=== PATIENT | male | born 1940 | race Caucasian/White ===

== ENCOUNTER → 2017-01-21 | Outpatient (CLI) | payer MEDICARE, BC ==
--- NOTE | 2017-01-21 10:01 | RADRPT ---
PROCEDURE: Left knee x-ray CLINICAL INDICATION: Pain TECHNIQUE: AP, lateral, sunrise and oblique views of the left knee were obtained. COMPARISON: None FINDINGS: There is mild degenerative joint disease of the left knee worse involving the medial compartment. N o evidence of acute fractures dislocation or patellar subluxation. The bony mineralization is brittany l. No focal bony blastic or lytic lesions. No evidence of knee joint effusion. The soft tissues a re unremarkable. IMPRESSION: 1. Mild degenerative joint disease left knee. 2. No evidence acute fracture dislocation or subluxation or joint effusion. RPTAT:AAJJ Physician Charity Date Time Electronically viewed and signed by Alvaro Brooks Physician on 01/21/2017 10:01 BM/
== END | disposition home or self-care (01) ==
LOC: HKI 09:28
PROVIDERS: ATTEND Orthopaedic Surgery
DX: M25.562 Pain in left knee (principal); S83.232A Complex tear of medial meniscus, current injury, left knee, initial encounter; M17.12 Unilateral primary osteoarthritis, left knee
CPT/HCPCS: 20610; 73564; G0463; J7327